=== PATIENT | male | born 1950 | race Caucasian/White ===

== ENCOUNTER → 2019-07-01 08:49 | Outpatient (CLI) | payer BC, MEDICARE, SELFPAY ==
--- NOTE | 2019-07-01 | DI.CT.S_ITS ---
PROCEDURE: CT ABDOMEN PELVIS W CON INDICATIONS: Localized edema in right leg TECHNIQUE: After the administration of oral and intravenous contrast, 5 mm thick sections acquired from the diaphragms to the symphysis. 5 mm thick coronal and sagittal reformats were performed. For radiation dose reduction, the following was used: automated exposure control, adjustment of mA and/. or kV according to patient size. COMPARISON: None. FINDINGS: Image quality: Excellent. ABDOMEN: Lung bases: Lung bases are clear. Heart size is normal. There is a moderately large hiatal hernia behind the heart Solid organs: Liver is normal in size and enhancement. Gallbladder contains a 1.7 cm peripherally calcified gallstone without evidence of gallbladder inflammation or adjacent biliary distention. Biliary system is non-dilated. Pancreas enhances normally. Spleen is normal in size and enhancement. No adrenal nodules. Kidneys are normal in size and enhancement, without hydronephrosis. There is a punctate calcification at the middle third of the right kidney, potentially within a calyx but also potentially a vascular calcification measuring approximately 1 mm. Peritoneum and bowel: Stomach, small bowel, and colon loops are normal in caliber and wall thickness. No free fluid or air. Nodes and vessels: No retroperitoneal or mesenteric adenopathy. Aorta and inferior vena cava are normal in caliber. Miscellaneous: No ventral hernias. PELVIS: Genitourinary: Bladder wall thickness is normal. There is mild prominence of the median lobe of the prostate but the prostate itself is not enlarged and impinging on the adjacent pelvic veins. Miscellaneous: No inguinal hernias or adenopathy. The inferior vena cava is normal in caliber, the right location of the IVC and the extension of the iliac veins into the upper legs bilaterally appear free of impingement or thrombosis. Bones: No suspicious bony lesions. No vertebral body compression fractures. IMPRESSION: Etiology of asymmetric right-sided leg edema is not found. The IVC, the bifurcation of the IVC and the pelvic veins appear normal. The study through the venous system appears normal to the inferior imaging margin, below the groin level. Incidental note is made of a 1.7 cm gallstone within the gallbladder lumen and a 1 mm calcification either involving a calyx but is nondistended at the mid right kidney, or this also could represent a vascular calcification. No followup recommended. Dictated by: Garret Pompa M.D. on 07/01/2019 at 10:57 Approved by: Garret Pompa M.D. on 07/01/2019 at 11:12
[2019-07-01 09:33] LABS: Blood Urea Nitrogen 20 mg/dL (9-20); Carbon Dioxide 30 mmol/L (22-32); Chloride 106 mmol/L (98-107); Estimated Glomerular Filt Rate > 60.0 mL/min (>60); Glucose 97 mg/dL (80-110); HEMOLYSIS < 15 (0-50); Sodium 143 mmol/L (137-145)
== END ==
PROVIDERS: Visit Provider Internal Medicine
DX: R60.0 Localized edema (principal); I89.0 Lymphedema, not elsewhere classified; K44.9 Diaphragmatic hernia without obstruction or gangrene; K80.20 Calculus of gallbladder without cholecystitis without obstruction
CPT/HCPCS: 36415; 74177; 80048; Q9967

== ENCOUNTER → 2019-07-22 17:05 | Outpatient (ROUT) | payer BC, MEDICARE, SELFPAY ==
[2019-07-22 17:07] LABS: RBC Urine None Seen (0-5/HPF)
[2019-07-22 17:16] LABS: Appearance Urine UA CLOUDY; Bilirubin Urine UA NEGATIVE (NEGATIVE); Color Urine UA YELLOW; Glucose Urine UA NEGATIVE (Negative); Ketones Urine UA NEGATIVE (NEGATIVE); Leukocyte Esterase Urine UA 2+ (NEGATIVE); Nitrite Urine UA POSITIVE (Negative); Occult Blood Urine UA NEGATIVE (Negative); Protein Urine UA NEGATIVE (Negative); Specific Gravity Urine UA 1.015 (1.000-1.035); Urobilinogen Urine UA 0.2 E.U./dL (0.2)
[2019-07-22 17:32] LABS: Amorphous Sediment Urine 3+; Bacteria Urine Few (2-10); Culture Indicated Urine Specimen Cultured; Mucus Urine 1+ (Negative); Squamous Epithelial Cell Urine 0-1 /HPF (0-5/HPF); Triple Phosphate Crystal Urine Few; WBC Urine 5-10/HPF (0-5/HPF)
== END ==
PROVIDERS: Visit Provider Internal Medicine
DX: D64.9 Anemia, unspecified (principal)
CPT/HCPCS: 81001; 87086